=== PATIENT | female | born 1985 | race Caucasian/White ===

== ENCOUNTER → 2022-08-14 | Outpatient (CLI) | payer OTHER ==
[~2022-08-14] MED LIST: NITR100CA PO
[2022-08-17 03:37] LABS: CHLAMYDIA TRACHOMATIS, NAA Negative (Negative)
== END | disposition home or self-care (01) ==
LOC: LAB SHORT 16:51 → LAB 16:51
PROVIDERS: Obstetrics & Gynecology
DX: O09.893 Supervision of other high risk pregnancies, third trimester (principal)
CPT/HCPCS: 87491; 87591

== ENCOUNTER 2022-08-15 18:40 | Inpatient (IN) | payer OTHER ==
[2022-08-15] VITALS (7 sets, daily range): BP systolic 130–152; BP diastolic 63–85
[~2022-08-15] VITALS: Ht 172.7 cm; Wt 131.0 kg
[2022-08-15 19:47] LABS: BASOPHILS ABSOLUTE AUTO 0.01 K/mm3 (0.00-0.23); BASOPHILS PERCENT AUTO 0 % (0-2); EOSINOPHILS PERCENT AUTO 0 % (0-6); Hematocrit 37.1 % (33.0-51.0); Hemoglobin 12.6 g/dL (11.5-16.0); IMMATURE GRAN ABSOLUTE AUTO 0.04 K/mm3 (0.00-0.10); IMMATURE GRAN PERCENT AUTO 0 % (0-1); LYMPHOCYTES ABSOLUTE AUTO 0.95 K/mm3 (0.84-5.20); LYMPHOCYTES PERCENT AUTO 10 % (21-46); MONOCYTES ABSOLUTE AUTO 0.76 K/mm3 (0.16-1.47); MONOCYTES PERCENT AUTO 8 % (4-13); Mean Corpuscular HGB 31.3 pg (26.0-34.0); Mean Corpuscular Volume 92 fL (80-100); Mean Platelet Volume 10.3 fL (9.1-12.4); NEUTROPHILS ABSOLUTE AUTO 7.38 K/mm3 (1.96-9.15); NEUTROPHILS PERCENT AUTO 81 % (41-73); Platelet Count 251 K/mm3 (150-400); RDW Coefficient Variation 13.3 % (11.7-14.2); RDW Standard Deviation 45.8 fL (35.1-46.3); Red Blood Cell Count 4.03 M/mm3 (3.80-5.20); White Blood Cell Count 9.14 K/mm3 (4.00-11.30)
[2022-08-16 00:03] VITALS: BP 119/85
[2022-08-16 00:50] LABS: U Amphetamine Screen Not Detected; U Barbituate Screen Not Detected; U Benzodiazapine Screen Not Detected; U Buprenorphine Screen Not Detected; U Cannabinoids Screen Not Detected; U Cocaine Screen Not Detected; U Methadone Screen Not Detected; U Methamphetamine Screen Not Detected; U Opiates Screen Not Detected; U Oxycodone Screen Not Detected; U Phencyclidine Screen Not Detected; U Propoxyphene Screen Not Detected
[2022-08-16 03:20] VITALS: BP 143/77
[2022-08-16 08:38] VITALS: BP 134/58
--- NOTE | 2022-08-16 11:15 | NUR ---
THIS RN MADE A REPORT TO CPS REGARDING LACK OF CARE. PHONE CALL MADE TO HOTLINE. REPORT ID# [id number]. REPORT TAKEN BY QUIRINO.
[2022-08-16 12:32] VITALS: BP 114/62
--- NOTE | 2022-08-16 14:00 | NUR ---
REPORT TAKEN FROM MANPREET ZAMORA. RN HELPED LATCH AT BREAST AND PT DENIES ANY NEED FOR PAIN MEDS OR ANYTHING AT THIS TIME. STATES SHE IS COMFORTABLE AND DOING WELL. DESIRES TO DC HOME TONIGHT.
--- NOTE | 2022-08-16 14:03 | NUR ---
PHONE CALL TO INGRID BRANNON, JERO, REGARDING POTENTIAL DISCHARGE THIS EVENING. INGRID STATED THE CASE HAD NOT BEEN ASSIGNED TO HER YET BUT SHE WOULD FIND OUT AND CALL THE UNIT BACK THIS EVENING REGARDING A DECISION.
[2022-08-16 15:08] VITALS: BP 126/61
--- NOTE | 2022-08-16 15:14 | NUR ---
declines needing meds or anything at this time. plans to dc home tonight. reinforced paperwork needs to be done.
[2022-08-16 19:12] VITALS: BP 118/62
--- NOTE | 2022-08-16 19:32 | NUR ---
DISCHARGE TEACHING TEACHING COMPLETED WITH PT AND SIGNIFICANT OTHER, BOTH VERBALIZE UNDERSTANDING AND HAVE NO FURTHER QUESTIONS OR CONCERNS AT THIS TIME
--- NOTE | 2022-08-16 21:15 | NUR ---
PT DISCHARGED TO HOME
== END 2022-08-16 21:18 | disposition home or self-care (01) | DRG 807 ==
LOC: OBS 18:40 → BC 19:15
PROVIDERS: Family Medicine; ADMIT Advanced Practice Midwife
PROC: 10E0XZZ Delivery of Products of Conception, External Approach (ICD-10-PCS; principal; 2022-08-15)
PROC: 0HQ9XZZ Repair Perineum Skin, External Approach (ICD-10-PCS; 2022-08-15)
DX: O99.214 Obesity complicating childbirth (principal); Z37.0 Single live birth; O70.0 First degree perineal laceration during delivery; Z3A.39 39 weeks gestation of pregnancy; R11.0 Nausea; K59.00 Constipation, unspecified; Z67.40 Type O blood, Rh positive
CPT/HCPCS: 36415; 85025; 86850; 86900; 86901; A9270; J1885; J2590; J7120

== ENCOUNTER 2024-02-29 14:13 | Emergency (ER) | payer OTHER ==
[~2024-02-29] VITALS: Ht 172.7 cm; Wt 136.1 kg
[2024-02-29 15:16] LABS: BASOPHILS ABSOLUTE AUTO 0.06 K/mm3 (0.00-0.23); BASOPHILS PERCENT AUTO 1 % (0-2); EOSINOPHILS ABSOLUTE AUTO 0.09 K/mm3 (0.00-0.68); EOSINOPHILS PERCENT AUTO 1 % (0-6); Hematocrit 42.1 % (33.0-51.0); Hemoglobin 14.1 g/dL (11.5-16.0); IMMATURE GRAN ABSOLUTE AUTO 0.04 K/mm3 (0.00-0.10); IMMATURE GRAN PERCENT AUTO 0 % (0-1); LYMPHOCYTES ABSOLUTE AUTO 2.78 K/mm3 (0.84-5.20); LYMPHOCYTES PERCENT AUTO 25 % (21-46); MONOCYTES ABSOLUTE AUTO 0.68 K/mm3 (0.16-1.47); MONOCYTES PERCENT AUTO 6 % (4-13); Mean Corpuscular HGB Conc 33.5 g/dL (31.5-36.5); Mean Corpuscular Volume 93 fL (80-100); Mean Platelet Volume 10.2 fL (9.1-12.4); NEUTROPHILS PERCENT AUTO 67 % (41-73); Platelet Count 233 K/mm3 (150-400); RDW Coefficient Variation 12.6 % (11.7-14.2); Red Blood Cell Count 4.55 M/mm3 (3.80-5.20); White Blood Cell Count 11.15 K/mm3 (4.00-11.30)
[2024-02-29 15:38] LABS: Albumin, Blood 3.8 g/dL (3.4-5.0); Albumin/Globulin Ratio 0.9 (0.8-1.8); Bilirubin, Total 1.6 mg/dL (0.1-1.0); Calcium, Blood 9.6 mg/dL (8.5-10.1); Creatinine, Blood 0.8 mg/dL (0.40-1.00); Globulin, Blood 4.4 g/dL (2.2-4.0); Potassium, Blood 4.2 mmol/L (3.5-5.5); Total Protein, Blood 8.2 g/dL (6.4-8.2)
[2024-02-29 16:19] LABS: Source, Urine Clean Catch
[2024-02-29 16:26] LABS: Appearance, Urine Hazy (Clear); Bilirubin, Urine Neg (Neg); Blood, Urine 1+ (Neg); Color, Urine Yellow (P-Yellow); Glucose Qualitative, Urine Neg (Neg); Ketones, Urine Neg (Neg); Leukocyte Esterase, Urine 1+ (Neg); Nitrite, Urine Neg (Neg); Protein, Urine Neg (Neg); Specific Gravity, Urine 1.025 (1.003-1.022); Urobilinogen, Urine NORM (Normal)
[2024-02-29 16:40] LABS: Bacteria Many /hpf; Red Blood Cells, Urine 0-2 /hpf (0-2); Squamous Epithelial Cells Few /hpf (Few)
[2024-02-29 18:54] VITALS: BP 145/95
== END 2024-02-29 18:56 | disposition home or self-care (01) ==
LOC: ER 14:13
PROVIDERS: Physician Assistant
DX: R10.9 Unspecified abdominal pain (principal)
CPT/HCPCS: 80053; 81001; 84703; 85025; 87086; 99284